=== PATIENT | male | born 2000 | race Caucasian/White ===

== ENCOUNTER 2025-07-25 02:54 | Emergency (ER) | payer OTHER ==
[~2025-07-25] VITALS: Ht 180.3 cm; Wt 72.6 kg
[~2025-07-25 02:54] MED LIST: ALBU90OI INH; AMOX50SU PO; FLUT44OIA IH; NICODERM CQ1 EA11 TOP; ONDA4ODT SL; PRED15SY PO
[2025-07-25 03:36] VITALS: BP 160/82
[2025-07-25] MEDS ORDERED: PENVK500 PO (04:17)
[2025-07-25] MEDS ORDERED: PERIDEX15 ML MM (04:19)
[2025-07-25] MEDS ORDERED: RX Prepack 2 Tabs Ondansetron ODT 4MG UD ONE (04:20)
[2025-07-25] MEDS ORDERED: RX Prepack 6 Tabs Oxycodone 5mg UD ONE (04:20)
== END 2025-07-25 04:36 | disposition home or self-care (01) ==
LOC: ER 02:54
DX: K02.9 Dental caries, unspecified (principal); J45.909 Unspecified asthma, uncomplicated; F17.200 Nicotine dependence, unspecified, uncomplicated; Z79.899 Other long term (current) drug therapy
CPT/HCPCS: 99282; A9270

== ENCOUNTER 2025-07-25 12:19 | Emergency (ER) | payer OTHER ==
[~2025-07-25 12:19] MED LIST changes: +PENVK500 PO; +PERIDEX15 ML MM
== END 2025-07-25 12:29 | disposition left against medical advice (07) ==
LOC: ER 12:19
DX: K08.89 Other specified disorders of teeth and supporting structures (principal); Z53.21 Procedure and treatment not carried out due to patient leaving prior to being seen by health care provider